=== PATIENT | female | born 1975 | race Caucasian/White ===

== ENCOUNTER 2024-08-13 15:12 | Observation (INO) | payer BC, SELFPAY ==
[2024-08-13] VITALS (10 sets, daily range): BP systolic 125–162; BP diastolic 66–101; BMI 39.4
--- NOTE | 2024-08-13 09:55 | ED.GENMED ---
History of Present Illness
General
Chief Complaint: Numbness
Source: patient
Exam Limitations: none
Time Seen by Provider: 08/13/24 09:28
Nursing documentation reviewed up to this point in time: agreed with
History of Present Illness
History of Present Illness:
49-year-old female presents emergency room complaining of numbness in her left face and arm. She denies any chest pain.
Past History
Past History
ED Past Medical History: Asthma and Other (Diverticulitis)
ED Past Surgical History: Appendectomy
Social History
Tobacco: Former smoker (Former cigarette smoker, quit 20 years ago)
Alcohol: None
Drug: Former user (Previous marijuana use)
Review of Systems
Review of Systems
Allergies reviewed?: Yes
All Other Systems: Not applicable
Constitutional: Reports no symptoms
EENT: Reports no symptoms
Respiratory: Reports no symptoms
Cardiac: Reports no symptoms
ABD/GI: Reports no symptoms
: Reports no symptoms
Musculoskeletal: Reports no symptoms
Skin: Reports no symptoms
Neurological: Reports numbness
Endocrine: Reports no symptoms
Hematologic/Lymphatic: Reports no symptoms
Psychiatric: Reports no symptoms
Phy Exam
Physical Exam
Physical Exam:
Physical Exam
General: no apparent distress, not acutely ill
Neck: supple. no meningeal signs. normal posterior pharynx
Heart: s1/s2 regular rate and rhythm, no murmur. equal radial
pulses.
HEENT: Pupils equal round reactive to light, EOMI
Lungs: no acute respiratory distress. clear bilaterally
Abdomen: normal bowel sounds. not tender. no CVAT
Neuro: alert and oriented. no focal neurological deficits cranial nerves II through XII intact
Skin: no rash
Psychiatric: well kept. interactive and cooperative
Extremities: no edema. no calf tenderness. negative homans. good distal pulses
NIH Stroke Score
Level of Consciousness: 0 - Alert
LOC questions: 0-Answers both correctly
LOC Commands: 0-Performs both correctly
Best Gaze: 0-Normal
Visual Sweeney: 0=Normal, no visual loss
Facial palsy: 0=Normal, symmetrical
Motor - Right Arm: 0=No drift 10 seconds
Motor - Left Arm: 0=No drift 10 seconds
Motor - Right Le-No drift 5 seconds
Motor - Left Le-No drift 5 seconds
Limb Ataxia: 0-Absent
Sensation: 0-Normal
Best Language: 0-No aphasia
Dysarthria: 0-Normal
Extinction and Inattention: 0-No abnormality
Total Score:: 0
Alteplase Contraindication
Reasons for NON-Treatment with Thrombolytics: Rapid improvement
[place] Coma Scale
Eye Opening: Spontaneous
Verbal Response: Oriented
Motor Response: Obeys Commands
GCS Total Score: 15
Course
Orders/Labs/Results
Orders:
Orders
08/13/24 09:50
Cardiac Monitoring- Treatment ONCE
IV Insert/Care/Rem.- Treatment PRN
Pulse Ox/cont/shift [RESP] Stat
Quantity: 1
08/13/24 09:53
Electrocardiogram (*1) Stat
Reason for Study: Other
Other Reason for Exam: neuro symptoms
EKG- Treatment ONCE
08/13/24 09:56
CT Head & Neck Angio W/wo IV Urgent
Comment:
Reason For Exam: left facial numbness,left arm numbness
08/13/24 10:24
Complete Blood Count/With Diff Urgent
Comprehensive Metabolic Panel Urgent
PTT Urgent
Prothrombin Time Urgent
Troponin I Urgent
08/13/24 14:45
Admit/Transfer Patient As Directed
Co-Sign Provider:
Level of Care: Observation services
Assign to:: Telemetry
Physician / Group: Nnamdi Arriaga
Diagnosis: TIA
Reason for Telemetry: CVA/TIA
Date to Stop Telemetry: 08/16/24
Time to Stop Telemetry: 11:00
08/13/24 14:46
PRN Pain Medication Management As Directed
May give lesser potent ordered pain med per pt: Yes
preference::
Protocol:: Medication orders for pain may be administered in a
manner that supports deferring to patient preference
when the pt is:
- Requesting an ordered lesser potent pain medication.
Least to most potent pain medications are defined
as: acetaminophen < NSAID < tramadol < opioids
(morphine, oxycodone, hydromorphone).
- Requesting a lesser dose of the same medication IF
ORDERED.
- Requesting a less intrusive route of administration
if both routes are prescribed by the provider (PO <
IV).
08/13/24 14:48
Code Status As Directed
Resuscitation Status: Do not resuscitate
Reached after discussion with pt or family/Healthcare POA: Yes
Decision communicated with: patient, friend present
08/13/24 14:49
DNR Bracelet Application ONCE
08/13/24 14:56
Add On- LAB Routine
Comments:: Please add to today's labs or draw as routine
Tests Added?: TSH reflex, Ferritin, Folate, Vit. B12, ESR, lipid proflie
08/13/24 15:00
Aspirin Low Dose EC [Aspir Low (Enteric Coated)] 81 mg PO DAILY
Clopidogrel Bisulfate [Plavix] 75 mg PO DAILY
08/16/24 11:00
DC Protocol for Telemetry ONCE
Abnormal Lab Results
08/13/24
10:24
WBC 11.4 H 10^3/uL
(4.8-10.8)
MCHC 32.6 L g/dL
(33.0-37.0)
MPV 10.7 H fL
(7.4-10.4)
Abs Immat Gran (auto) 0.1 H 10^3/uL
(0-0.05)
Absolute Neuts (auto) 8.7 H 10^3/uL
(1.4-6.5)
Neutrophils % 76.6 H %
(42.2-75.2)
Lymphocytes % 16.7 L %
(20.5-51.1)
Sodium 134 L mmol/L
(135-145)
Glucose 412 H mg/dl
(70-99)
Alkaline Phosphatase 153 H U/L
(38-126)
08/13/24 10:24
08/13/24 10:24
Vital Signs
Initial and Last Documented VS:
Initial Vital Signs
BP
148/97
08/13/24 09:34
Last Documented Vital Signs
Temp Pulse Resp BP Pulse Ox
98.3 F 93 17 131/91 94
08/13/24 09:35 08/13/24 13:45 08/13/24 13:30 08/13/24 13:00 08/13/24 14:00
MDM/Problems Addressed
Differential Diagnosis Includes:
TIA, CVA
MDM/Problems Addressed:
49-year-old female with left-sided numbness, possibly due to TIA versus CVA. Symptoms resolved. Patient had recurrence of symptoms with resolution in ED. Admit for further workup.
*Radiology
Radiology exam reviewed: radiology read reviewed (CT head no acute findings)
*Pulse Oximetry
Patient hypoxic: no
*EKG
Interpreted by ED Provider?: Yes
EKG Intrepretation Date: 08/13/24
EKG Intrepretation Time: 11:19
Interpretation: normal
Comparison EKG: no comparison EKG present
Heart Rate: 80
Rate: normal
Rhythm: sinus
[place]: normal axis
Interval: normal interval
QRS Pattern: normal QRS
Ischemia: no ischemia
*Coring Machine Operator Interpretation
Rate: normal
Interpretation: normal
Heart Rate: 78
Rhythm: sinus
*Critical Care Note
Total Time (30-74mins, 75-104mins- exclusive of procedures): Not Applicable
Patient Management
Social determinants of health affecting care: Living situation
Discussion with other providers: Hospitalist and Frontend Engineer
Escalation/DeEscalation of care consider admission/obs:
admit indicated
ED Attending Note
-
Portions of this chart may have been created with voice recognition software.� Occasional wrong word or��sound alike� substitutions may have occurred due to the inherent limitations of voice recognition software.
Discharge Plan
Departure
Patient Disposition: Admit
Date of Disposition: 08/13/24
Time of Disposition: 13:24
Admit to: Telemetry
Presentation/result/management discussed w/ accepting MD/DO: Hospitalist
Patient with high blood pressure during this ER visit?: Yes
Condition: Good
Discharge Problem:
Transient ischemic attack (TIA), Acute hyperglycemia
Interventions
Interventions:
*Risk Screen - Suicide Last Done: 08/13/24 09:29
*General Assessment Last Done: 08/13/24 09:29
*Neglect/Abuse Screening Last Done: 08/13/24 09:29
ED- Fall Risk Assessment Last Done: 08/13/24 09:29
*ED COVID-19 Vaccine History Last Done: 08/13/24 09:29
ED- Neurological Assessment Last Done: 08/13/24 09:29
[2024-08-13 10:36] LABS: % Basophils 0.6 % (0-2); % Immature Granulocytes 0.4 % (0-0.5); % Lymphocytes 16.7 % (20.5-51.1); % Monocytes 4.7 % (1.7-9.3); % Neutrophils 76.6 % (42.2-75.2); Absolute Basophils 0.1 10^3/uL (0-0.2); Absolute Eosinophils 0.1 10^3/uL (0-0.7); Absolute Immature Granulocytes 0.1 10^3/uL (0-0.05); Absolute Lymphocytes 1.9 10^3/uL (1.2-3.4); Absolute Monocytes 0.5 10^3/uL (0.1-0.6); Absolute Neutrophils 8.7 10^3/uL (1.4-6.5); Hemoglobin 13.7 g/dL (12.0-16.0); Mean Corp Hgb Conc. 32.6 g/dL (33.0-37.0); Mean Corpuscular Hgb 28.5 pg (27.0-31.0); Mean Corpuscular Volume 87.3 fL (81.0-99.0); Mean Platelet Volume 10.7 fL (7.4-10.4); Nucleated Red Blood Cells % 0 %; Platelet Count 295 10^3/uL (130-400); Red Blood Cell Count 4.81 10^6/uL (4.20-5.40); White Blood Cell Count 11.4 10^3/uL (4.8-10.8)
[2024-08-13 10:52] LABS: ALT (SGPT) 21 U/L (0-35); AST (SGOT) 17 U/L (14-36); Alkaline Phosphatase 153 U/L (38-126); Blood Urea Nitrogen 14 mg/dl (7-17); Calcium 9.2 mg/dl (8.4-10.2); Carbon Dioxide 28 mmol/L (22-30); Chloride 98 mmol/L (98-107); Estimated Creatinine Clearance > 125 ml/min; Glucose 412 mg/dl (70-99); Potassium 4.9 mmol/L (3.5-5.1); Sodium 134 mmol/L (135-145); Total Bilirubin 0.5 mg/dl (0.2-1.3); Total Protein 6.4 g/dl (6.3-8.2); eGFR > 60.00
[2024-08-13 10:54] LABS: INR 0.92; PT 12.8 Sec (11.4-14.6)
[2024-08-13 10:55] LABS: APTT 26.8 Sec (23.4-35.0)
[2024-08-13 11:03] LABS: Troponin I < 0.012 ng/ml
--- NOTE | 2024-08-13 14:12 | HPS.HSE ---
Family Physician
-
Family Physician: Varsha Rodriguez
Chief Complaint
-
numbness
History of Present Illness
Patient is a 49-year-old female with past medical history significant for hypertension, hyperlipidemia, type 2 diabetes, neuropathy, asthma and GERD who presented to [facility] ED for evaluation of numbness to left face and arm that resolved
spontaneously in less than 7 minutes. Patient states she had a second episode of numbness to left face and left arm after arrival in ED that also spontaneously subsided in a few minutes. Patient denies any fever, chills, chest pain, cough,
constipation, diarrhea or urinary symptoms.
Medical History
Past Medical History
Past Medical History: Reports Other
Additional Past Medical History:
hypertension
hyperlipidemia
type 2 diabetes
neuropathy
asthma
GERD
Hx uterine cancer
Past Surgical History: Reports Other
Additional Past Surgical History:
appendectomy
knee arthroscopy/ACL repair
hysterectomy (2007)
Social History
Tobacco: Former Smoker (quit 2012)
Alcohol: None
Drug: Marijuana (was smoking a few times a week, reports has not smoked since March)
Personal: Single
Living: With Family
Employment: Not Employed
Family History
Family History: Not pertinent
Allergies / Home Medications
Allergies reflects when Allergies were last updated in [facility].
Home Medications with original date entered in [facility]
Allergy/Medication List:
Allergies
Allergy/AdvReac Type Severity Reaction Status Date / Time
No Known Allergies Allergy Unverified 09/11/23 14:41
Home Medications
amlodipine 10 mg tablet (Norvasc) 10 mg PO HS Blood Pressure 09/11/23
fluticasone 250 mcg-salmeterol 50 mcg/dose blistr powdr for inhalation (Advair Diskus) 1 inh inhalation R BID Lung/Breathing Issues 09/11/23
insulin glargine 100 unit/mL subcutaneous solution (Lantus U-100 Insulin) 25 unit SC HS Diabetes 09/11/23
pregabalin 100 mg capsule (Lyrica) 100 mg PO BID Pain 09/11/23
albuterol sulfate 90 mcg/actuation aerosol inhaler 2 puff inhalation R Q6HPRN PRN sob 08/13/24
atorvastatin 40 mg tablet 40 mg PO HS High Cholesterol 08/13/24
ibuprofen 800 mg tablet 800 mg PO HSPRN PRN mild pain 08/13/24
omeprazole 40 mg capsule,delayed release 40 mg PO HS Gastrointestinal Issue 08/13/24
Review of Systems
-
History Source: Patient
Constitutional: Reports No Symptoms
EENT: Reports No Symptoms
Respiratory: Reports No Symptoms
Cardiac: Reports No Symptoms
Abdomen/GI: Reports No Symptoms
: Reports No Symptoms
Musculoskeletal: Reports No Symptoms
Skin: Reports No Symptoms
Neurological: Reports Numbness (left face and left arm x2 episodes resolving spontaneously in less than 5-7 minutes)
Endocrine: Reports No Symptoms
Hematologic/Lymphatic: Reports No Symptoms
Psych: Reports No Symptoms
Physical Exam
Vital Signs
Vital Signs
Temp Pulse Resp BP Pulse Ox
98.3 F 93 17 131/91 94
08/13/24 09:35 08/13/24 13:45 08/13/24 13:30 08/13/24 13:00 08/13/24 14:00
Physical Exam
General: Well Developed, Well Nourished, No Apparent Distress, Comfortable and Conversant
HEENT: NormoCephalic, Moist mucous membranes and Atraumatic
Respiratory: Clear and Non Labored Respirations; No Wheezes, Rales, Rhonchi or Crackles
Cardiac: S1/S2 and Regular Rhythm; No Murmur, Rub or Gallop
Breast: Deferred by me
GI: Soft, Non Tender, Non Distended and Normal Bowel Sounds; No Organomegaly
Rectal: Deferred by Provider
Genito-urinary: Deferred by me
Musculoskeletal: No Clubbing, No Cyanosis and No Edema
Skin: Warm and IV/Catheter Site; No Rash
Neuro: Awake, Alert, AO x 3, No Motor Deficits, Nonfocal/grossly intact, Cranial Nerves Intact and No Sensory Deficits; No Slurred Speech, Facial Droop or Tremors
Hematologic/Lymphatic: No Lymphadenopathy
Psych: Calm and Intact Judgment/Insight
Laboratory Results
-
08/13/24 10:24
08/13/24 10:24
Laboratory Results
PT 12.8 Sec (11.4-14.6) 08/13/24 10:24
INR 0.92 08/13/24 10:24
APTT 26.8 Sec (23.4-35.0) 08/13/24 10:24
Total Bilirubin 0.5 mg/dl (0.2-1.3) 08/13/24 10:24
AST 17 U/L (14-36) 08/13/24 10:24
ALT 21 U/L (0-35) 08/13/24 10:24
Alkaline Phosphatase 153 U/L (38-126) H 08/13/24 10:24
Troponin I < 0.012 ng/ml 08/13/24 10:24
Data Reviewed
-
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 The study is otherwise normal)
Medical Tests (Nuc Med, Echo, EKG etc): Report Reviewed by me (EKG: NORMAL SINUS RHYTHM LOW VOLTAGE QRS ACROSS PRECORDIAL LEADS CANNOT RULE OUT ANTERIOR INFARCT , AGE UNDETERMINED ABNORMAL ECG NO PREVIOUS ECGS AVAILABLE)
Lab Data: Labs Reviewed by me (WBC 11.4, Glucose 412)
Impression/Plan
-
IMPRESSION/PLAN:
#TIA
pt c/o left side numbness to face and arm and resolved within 5-7 minutes
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
The study is otherwise normal
- Admit to telemetry
- Consult Neurology
- start aspirin and Plavix
- MRI
#hypertension
stable
- continue amlodipine
#hyperlipidemia
- continue atorvastatin
- check lipid panel
#type 2 diabetes
- continue insulin glargine
- AccuChecks AC & HS
- SSI
#Neuropathy
- continue pregabalin
#Asthma
- continue albuterol and Advair
#GERD
- continue omeprazole
Code Status: Full Code
DVT Prophylaxis: Lovenox Sq
[2024-08-13] MEDS: ASPIR LOW (ENTERIC COATED) 81 MG PO (15:21)
[2024-08-13] MEDS: PLAVIX 75 MG PO (15:21)
--- NOTE | 2024-08-13 15:37 | W.PN.UPDATE ---
Update Note
Progress Note Update
This note serves as an addendum to the H&P by internal audit senior manager GREG Naila Wells
HPI
49F HX HTN, HLD, T2DM, Neuropathy , Asthma and GERD seen at ER>
- For evaluation of abrupt onseet of numbness to left face and arm that resolved spontaneously in less than 7 minutes.
- Second episode of numbness to left face and left arm after arrival in ED then spontaneously subsided few minutes.
ROS:
Denies any fever, chills, chest pain, cough, constipation, diarrhea or urinary symptoms.
PHX:
hypertension
hyperlipidemia
type 2 diabetes
neuropathy
asthma
GERD
Hx uterine cancer
Past Surgical History: Reports Other
Additional Past Surgical History:
appendectomy
knee arthroscopy/ACL repair
hysterectomy (2007)
Vital Signs
Temp Pulse Resp BP Pulse Ox
98.3 F 93 17 131/91 94
08/13/24 09:35 08/13/24 13:45 08/13/24 13:30 08/13/24 13:00 08/13/24 14:00
PE
General: No Apparent Distress, Comfortable and Conversant
HEENT: Moist OM
Respiratory: Clear and Non Labored Respirations; No Wheezes, Rales, Rhonchi or Crackles
Cardiac: S1/S2 and Regular Rhythm; No Murmur, Rub or Gallop
Breast: Deferred by me
GI: Soft, Non Tender, Non Distended and Normal Bowel Sounds; No Organomegaly
Rectal: Deferred by Provider
Genito-urinary: Deferred by me
Musculoskeletal: No Edema
Skin: Warm and IV/Catheter Site; No Rash
Neuro: Awake, Alert, AO x 3, No Motor Deficits, Nonfocal/grossly intact, Cranial Nerves Intact and No Sensory Deficits; No Slurred Speech, Facial Droop or Tremors
Hematologic/Lymphatic: No Lymphadenopathy
Psych: Calm and Intact Judgment/Insight
Abnormal Lab Results
08/13/24
10:24
WBC 11.4 H
MCHC 32.6 L
MPV 10.7 H
Abs Immat Gran (auto) 0.1 H
Absolute Neuts (auto) 8.7 H
Neutrophils % 76.6 H
Lymphocytes % 16.7 L
Sodium 134 L
Glucose 412 H
Alkaline Phosphatase [address] Head & Neck Angio W/wo IV
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
The study is otherwise normal
ASSESSMENT & PLAN
Pending Rx reconciliation
Presumed TIA to evaluate for 2 transient episode of acute left side numbness to face and arm
Head/Neck CTA: as above: The study is otherwise normal
- start aspirin and Plavix
- MRI of Brain
- Neuro consulted
Benign hypertension
- stable
- cont amlodipine
Hyperlipidemia
- continue atorvastatin
- check lipid panel
T2DM
- continue insulin glargine
- Accu Checks AC & HS
- SSI low
DVT Px: LMWH
Full code
Obs TLM
--- NOTE | 2024-08-13 15:56 | CON.NEURO4 ---
Addendum entered and electronically signed by Moncho Ruiz MD 08/13/24 16:28:
Studies reviewed.
I have personally examined the patient. I reviewed and agree with the CLINICAL DOCUMENTATION CLERK's Note.
My addenda:
Awake, alert, interactive. No acute distress.
Speech intact.
Follows 2-step requests w/o difficulty. No tremor.
Extra-ocular movements grossly intact.
Facial movements full and symmetric. Hearing intact to normal conversational volume.
Normal UE movements bilaterally.
Neck: full ROM.
Chest: no dyspnea
Heart: no JVD
Ext: (-) Clubbing, (-) Cyanosis, (-) Edema
IMPRESSIONS/RECOMMENDATIONS:
Abrupt onset of facial sensation and left arm sensation change in a patient with poorly controlled type 2 diabetes
Differential diagnosis includes TIA or toxic metabolic etiology in a patient with known diabetic neuropathy
Goal of normoglycemia
Check MRI of brain for completeness
Initiate combination of aspirin and clopidogrel with discontinuance of clopidogrel if patient has no evidence of prior ischemic injury
Medical educational materials to be provided
Continue current pregabalin for neuropathic pain
Continue atorvastatin 40 mg daily dependent on LDL findings
Check blood work for additional metabolic abnormalities
No clear indication patient would benefit from rehabilitation evaluations at this time
Consideration for use of prochlorperazine for headache rescue if the patient redevelops visual change described previously
D/W patient
Will continue to follow pending results.
Original Note:
Documented by User: YAZAN De Los Santos 08/13/24 16:23
Consultation - Neurology 4
-
CONSULTING PHYSICIAN: Dr. Moncho Ruiz
REFERRING PHYSICIAN: Dr. Miko Sr
DICTATED BY: Melissa HAND
DATE/TIME OF REQUEST: 08/13/2024
DATE/TIME OF CONSULTATION: 08/13/2024
Reason for Consultation: stroke symptoms
History of Present Illness:
This is a Right handed 49-year-old female patient with past medical history of hypertension, hyperlipidemia, type 2 diabetes, neuropathy, asthma, GERD and uterine cancer who presented to the hospital today after a transient episode of altered
vision and left facial as well as arm numbness. She reports she was working sitting at hers desk at 0900 when she had sudden onset of wavy vision in both eyes when looking forward followed by left facial and lip numbness and left arm numbness.
She reported that this episode lasted about 7 minutes. She felt she needed evaluation and presented to the ER. While she was in the ER about 2 pm she had second episode starting with vision changes, then left facial and arm numbness. During the
second episode she also noted numbness of her tongue. Staff noted left facial weakness and she felt her speech was not quite normal. This again lasted about 7 minutes. She denies any headache. She denies dizziness. Denies any weakness or
numbness of right side. She denies any trouble with swallowing. She denied any episodes similar to this in the past. She has no history of migraines. She had a CT of the head that was unremarkable. She does not take any antiplatelet. She does
admit that she has a history of neuropathy. This is due to her back. She has had EMG in the past. She does follow-up with Ortho. They had offered her some narcotic pain medication for the discomfort in her feet but she has decided against taking
narcotics. She does take Lyrica.
Past Medical History
Past Medical History: Reports Other
Additional Past Medical History:
hypertension
hyperlipidemia
type 2 diabetes
neuropathy
asthma
GERD
Hx uterine cancer
Past Surgical History: Reports Other
Additional Past Surgical History:
appendectomy
knee arthroscopy/ACL repair
hysterectomy (2007)
Social History
Tobacco: Former Smoker (quit 2012)
Alcohol: None
Drug: Marijuana (was smoking a few times a week, reports has not smoked since March)
Personal: Single
Living: With Family
Employment: Not Employed
Family History
mother Asthma, father mental health disease
Allergies: seeb elow
Home Medications: see below
Review of Symptoms:
Patient denies any fever, headache, chest pain, shortness of breath, GI or symptoms.
Vital Signs: see below
Physical Exam:
The patient is afebrile, heart sounds S1 and S2 are regular no dyspnea or SOB.
NIH Stroke Scale-see below
Neurologic Examination:
The patient is awake, alert and oriented x 3. (He/She) is able to follow commands and answer questions appropriately. There is no aphasia or dysarthria. On cranial nerve assessment, pupils are 3 mm bilateral, round and reactive to light and
accommodation. Visual sweeney are full. Extraocular movements are intact. Facial sensations are intact and bilaterally symmetrical, there is no facial asymmetry. Hearing is intact bilaterally to normal conversation volume. Tongue palate and uvula
are midline. Sternocleidomastoid strengths are full bilaterally. Motor strengths are 5/5 bilateral upper and lower extremities on medical research [place] [employer] [place] scale. There is no drift or involuntary movement noted. Deep tendon reflexes are 2+ bilateral
upper and lower extremities and Babinski is absent bilaterally. Sensations of light touch and temperature reduced bilateral lower extremities distally. There was no extinction noted on double simultaneous stimulation. Coordination is intact by
finger to nose bilaterally.
Lab Results: see below
Neuro Imaging:
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 Study is otherwise normal
Impression:
KRISTA MUNOZ is a 49 year old F who has presented to the hospital with Vision changes, left facial and left upper extremity numbness. Has chronic lower extremity neuropathy.
Differentials for the patient's presentation include TIA vs acute stroke vs acephalgic complicated migraine
Patient has the following risk factors for their symptoms: DM,HTN, HLD
IV Tenecteplase/IAT candidacy-Low NIH
Recommendations:
-Check MRI brain, no need for additional imaging as CTA head/neck completed
-Start ASA 81 mg and Plavix 75 mg daily x 21 days
-Check echo
-lipids pending, continue Atorvastatin 40 mg goal LDL less than 70
-allow permissive HTN for 24 hours then goal normotension
-goal normoglycemia, HgbA1c 09/2023 11.6, will order new HgbA1c
-labs for additional metabolic causes pending
-rehab evaluations
-continue Lyrica
-DVT prophylaxis
-rest of medical management per primary care team
Discussed patient care with patient and neurologist Dr. Ruiz.
Medication and Allergies
Home Medications
Home Medications
�Medication �Instructions �Recorded
amlodipine 10 mg tablet (Norvasc) 10 mg PO HS Blood Pressure 09/11/23
fluticasone 250 mcg-salmeterol 50 1 inh inhalation R BID 09/11/23
mcg/dose blistr powdr for Lung/Breathing Issues
inhalation (Advair Diskus)
insulin glargine 100 unit/mL 25 unit SC HS Diabetes 09/11/23
subcutaneous solution (Lantus
U-100 Insulin)
pregabalin 100 mg capsule (Lyrica) 100 mg PO BID Pain 09/11/23
albuterol sulfate 90 mcg/actuation 2 puff inhalation R Q6HPRN PRN sob 08/13/24
aerosol inhaler
atorvastatin 40 mg tablet 40 mg PO HS High Cholesterol 08/13/24
ibuprofen 800 mg tablet 800 mg PO HSPRN PRN mild pain 08/13/24
omeprazole 40 mg capsule,delayed 40 mg PO HS Gastrointestinal Issue 08/13/24
release
Allergies
Allergies
Allergy/AdvReac Type Severity Reaction Status Date / Time
No Known Allergies Allergy Unverified 09/11/23 14:41
Vital Signs / Labs
-
Vital Signs and Labs:
Temp Pulse Resp BP Pulse Ox
98.3 F 90 13 131/91 93
08/13/24 09:35 08/13/24 15:30 08/13/24 15:30 08/13/24 13:00 08/13/24 15:30
08/13/24 10:24
08/13/24 10:24
08/13/24
10:24
WBC 11.4 H
MCHC 32.6 L
MPV 10.7 H
Abs Immat Gran (auto) 0.1 H
Absolute Neuts (auto) 8.7 H
Neutrophils % 76.6 H
Lymphocytes % 16.7 L
Sodium 134 L
Glucose 412 H
Alkaline Phosphatase 153 H
NIH Stroke Score
NIH Stroke Score
Level of Consciousness: 0 - Alert
LOC Questions: 0-Answers both correctly
LOC Commands: 0-Performs both correctly
Best Horizontal Gaze: 0-Normal
Visual Sweeney: 0=Normal, no visual loss
Facial Palsy: 0=Normal, symmetrical
Motor - Right Arm: 0=No drift 10 seconds
Motor - Left Arm: 0=No drift 10 seconds
Motor - Right Le-No drift 5 seconds
Motor - Left Le-No drift 5 seconds
Limb Ataxia: 0-Absent
Sensation: 0-Normal
Best Language: 0-No aphasia
Dysarthria: 0-Normal
Extinction and Inattention: 0-No abnormality
Total Score:: 0
Modified [place] (mRS) Score
Modified Jack Scale (mRS): No symptoms
Score: 0

Documented by User: Moncho Ruiz MD 08/13/24 16:24
NIH Stroke Score
NIH Stroke Score
Total Score:: 0
Modified [place] (mRS) Score
Score: 0
[2024-08-13 16:08] LABS: Erythrocyte Sed Rate 24 mm/hour (0-20)
[2024-08-13 16:16] LABS: HDL Cholesterol 36 mg/dl; LDL Cholesterol, Calculated 72 mg/dl; Total Cholesterol 159 mg/dl (50-199); Triglyceride 257 mg/dl (10-149); Very Low Density Lipoprotein 51 mg/dl (0-30)
[2024-08-13 16:54] LABS: TSH Reflex To Free T4 0.72 uIU/ml (0.47-4.68)
[2024-08-13 17:29] LABS: Folate 10.2 ng/ml (2.76-20); Vitamin B12 510 pg/ml (239-931)
[2024-08-13] MEDS: ASPIRIN 325 MG PO (18:29)
[2024-08-13 18:34] LABS: Glucose - Point of Care 266 mg/dl (70-99)
[2024-08-13] MEDS: NOVOLOG FLEXPEN-LOW RESISTANCE 3 UNITS SC (18:51)
[2024-08-13] MEDS: ADVAIR HFA 115/21 MCG INHALER 2 PUFF INH (19:59)
[2024-08-13] MEDS: LYRICA 100 MG PO (20:13)
[2024-08-13] MEDS: NORVASC 10 MG PO (21:40)
[2024-08-13] MEDS: LIPITOR 40 MG PO (21:40)
[2024-08-13] MEDS: PROTONIX 40 MG PO (21:43)
[2024-08-13 22:17] LABS: Glucose - Point of Care 346 mg/dl (70-99)
[2024-08-13] MEDS: LANTUS 0.25 UNITS SC (22:26)
[2024-08-14 03:30] VITALS: BP 155/97
[2024-08-14 07:30] VITALS: BP 143/86
[2024-08-14] MEDS: ADVAIR HFA 115/21 MCG INHALER 2 PUFF INH (07:37)
[2024-08-14 07:44] LABS: Glucose - Point of Care 290 mg/dl (70-99)
[2024-08-14 08:58] LABS: Hematocrit 41.2 % (37.0-47.0); Hemoglobin 13.4 g/dL (12.0-16.0); Mean Corp Hgb Conc. 32.5 g/dL (33.0-37.0); Mean Corpuscular Hgb 28.3 pg (27.0-31.0); Mean Corpuscular Volume 86.9 fL (81.0-99.0); Mean Platelet Volume 10.9 fL (7.4-10.4); Platelet Count 321 10^3/uL (130-400); Red Blood Cell Count 4.74 10^6/uL (4.20-5.40); Red Cell Dist. Width 12.2 % (11.5-14.5); White Blood Cell Count 10.5 10^3/uL (4.8-10.8)
[2024-08-14 09:33] LABS: ALT (SGPT) 20 U/L (0-35); AST (SGOT) 19 U/L (14-36); Albumin 4.1 g/dl (3.5-5.0); Alkaline Phosphatase 115 U/L (38-126); Blood Urea Nitrogen 12 mg/dl (7-17); Calcium 9.2 mg/dl (8.4-10.2); Carbon Dioxide 24 mmol/L (22-30); Chloride 100 mmol/L (98-107); Estimated Creatinine Clearance > 125 ml/min; Glucose 296 mg/dl (70-99); HDL Cholesterol 34 mg/dl; LDL Cholesterol, Calculated 71 mg/dl; Potassium 4.5 mmol/L (3.5-5.1); Sodium 135 mmol/L (135-145); Total Bilirubin 0.7 mg/dl (0.2-1.3); Total Cholesterol 171 mg/dl (50-199); Total Protein 6.5 g/dl (6.3-8.2); Triglyceride 332 mg/dl (10-149); Very Low Density Lipoprotein 66 mg/dl (0-30); eGFR > 60.00
--- NOTE | 2024-08-14 09:34 | W.PN.NEURO.1 ---
Addendum entered and electronically signed by Moncho Ruiz MD 08/14/24 10:50:
Studies reviewed.
I have personally examined the patient. I reviewed and agree with the [employer] OPERATOR's Note.
My addenda:
Awake, alert, interactive. No acute distress.
Speech intact.
No tremor.
Extra-ocular movements grossly intact.
Facial movements full and symmetric. Hearing intact to normal conversational volume.
Normal UE movements bilaterally.
Neck: full ROM.
Chest: no dyspnea
Heart: no JVD
Ext: (-) Clubbing, (-) Cyanosis, (-) Edema
IMPRESSIONS/RECOMMENDATIONS:
Abrupt onset of left facial sensation change with left arm sensation change in a patient with poorly controlled diabetes
Probably metabolic in etiology. Cannot eliminate possibility of TIA or acephalgic migraine
Provide Rizatriptan for the patient's perpetual headache
Continue pregabalin for discomfort
Continue combination of aspirin and clopidogrel for total 21 days, then aspirin alone
Continue usual atorvastatin dosing
Goal of normoglycemia
Goal of normotension
D/W patient
All questions answered.
Will continue to follow patient.
Original Note:
Today's Communication / Plan
-
-continue ASA, Plavix and atorvastatin
-Tylenol for headache
Neuro Assessment/Plan
Assessment
This is a 50 year old female patient who presented with intermittent episodes of vision changes as well as left sided facial and left arm sensation changes. She reports posterior and left sided headache today which began in the middle of the night.
MRI brain reviewed and negative for acute stoke.
Differential diagnosis includes TIA vs acephalgic migraine vs metabolic disturbance.
Pt also has chronic neuropathy.
Plan
-reviewed neurologic imaging
--CTA head and neck
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
The study is otherwise normal
--MRI brain
No acute intracranial abnormality noted.
-will treat as possible TIA-ASA and Plavix x21 days then continue ASA 81 mg daily indefinitely
--Echo
No CSE/PFO
-LDL 71 continue Atorvastatin 40 mg, goal less than 70
-goal normotension
-goal normoglycemia-HgbA1c pending
-No clear need for continued PT/OT or speech evaluations
-DVT prophylaxis
-Tylenol 650 mg q4h prn headache
-continue Lyrica
-DVT prophylaxis
-rest of medical management per primary care team
Subjective/Objective
Subjective Data
Date of Service: August 14, 2024
Pt seen at bedside today. She reports that she had another episode of left facial and arm numbness that lasted about 5 minutes about 5 pm last night while she was having her Echo completed. She also started with a headache 4/10 in intensity left
ye/nose and posterior head in the middle of the night and has continued this morning. She denies any additional weakness. No trouble with speaking or swallowing.
Objective Data
Vital Signs
Temp Pulse Resp BP Pulse Ox
97.8 F 78 16 143/86 95
08/14/24 07:30 08/14/24 07:41 08/14/24 07:41 08/14/24 07:30 08/14/24 07:41
Lab Results
08/14/24 07:55
08/14/24 07:55
PT 12.8 Sec (11.4-14.6) 08/13/24 10:24
INR 0.92 08/13/24 10:24
APTT 26.8 Sec (23.4-35.0) 08/13/24 10:24
Sodium 135 mmol/L (135-145) 08/14/24 07:55
Potassium 4.5 mmol/L (3.5-5.1) 08/14/24 07:55
BUN 12 mg/dl (7-17) 08/14/24 07:55
Glucose 296 mg/dl (70-99) H 08/14/24 07:55
Calcium 9.2 mg/dl (8.4-10.2) 08/14/24 07:55
LDL Cholesterol, Calc 71 mg/dl 08/14/24 07:55
Vitamin B12 510 pg/ml (239-931) 08/13/24 10:24
Patient Allergies
No Known Allergies Allergy (Unverified 09/11/23 14:41)
LDL Level: >70, statin ordered
Review of Systems
-
History Source: Patient
Constitutional: No Symptoms
EENT: No Symptoms Reported
Respiratory: No Symptoms
Cardiac: No Symptoms
Abdomen/GI: No Symptoms
Genitourinary: No Symptoms
Musculoskeletal: No Symptoms
Skin: No Symptoms
Neuro: Headache, Numbness and See existing Neuro Note; Negative Dizzy, Weakness, Tremors or Speech Problem
Physical Exam
-
General: Well Developed, Well Nourished and No Apparent Distress
Eyes: Round OU
HEENT: Normocephalic
Neck: Full Range of Motion
Respiratory: No Dyspnea
Cardiac: Regular Rhythm
GI: Soft and Non-tender
Skin: Unremarkable
Extremities: No Clubbing
Psych: Unremarkable
Extended Neurological Exam
Mood & Affect: Mood Unremarkable and Affect Unremarkable
Attention Span & Concentration: Awake, Alert and No Difficulty with 2 Step Request
Memory: Unremarkable
Tremor: Hand Tremor Absent and Head Tremor Absent
Involuntary Movement: None
Speech: Quality Unremarkable, Quantity Unremarkable and Rate of Production Unremarkable
Cranial Nerve II: Left Eye: Pupillary Reactivity Unremarkable, Pupillary Size Unremarkable and Visual Sweeney Grossly Intact
Cranial Nerve II: Right Eye: Pupillary Reactivity Unremarkable, Pupillary Size Unremarkable and Visual Sweeney Grossly Intact
Cranial Nerves III, IV, : Extraocular Movement: Extraocular Movement Full in all Directions
Cranial Nerve VII: Facial Symmetry: Normal Facial Symmetry
Cranial Nerve VIII: Hearing: Unremarkable Hearing to Normal Conversational Volume
Cranial Nerves IX, X: Palate Movement: Palate Elevation Symmetric
Cranial Nerve XI: Shoulder Shrug: Unremarkable
Cranial Nerve XII: Tongue Protusion: Midline
Muscle Strength, Overall: Full Throughout
Coordination: Inuplo-dbqa-ccusgy Testing Unremarkable
Data Reviewed
-
MRI Head: Report Reviewed and Image Reviewed
Labs: Report Reviewed
Lipid Profile: Report Reviewed
HgbA1C: Pending
Reviewed with: Physician and Patient
[2024-08-14] MEDS: NOVOLOG FLEXPEN-LOW RESISTANCE SC (09:39)
[2024-08-14] MEDS: LYRICA 100 MG PO (09:39)
[2024-08-14] MEDS: PLAVIX 75 MG PO (09:39)
[2024-08-14] MEDS: ASPIR LOW (ENTERIC COATED) 81 MG PO (09:39)
[2024-08-14] MEDS: MAXALT MLT (ORALLY DISINTEGRATING) 10 MG PO (09:54)
[2024-08-14] MEDS: NOVOLOG FLEXPEN-LOW RESISTANCE 3 UNITS SC (09:54)
[2024-08-14 10:33] LABS: Glycohemoglobin (HgbA1c) 13.2 % (4.0-5.6)
--- NOTE | 2024-08-14 10:39 | PN.DE.MGMTRT ---
Insulin Management
- -
08/14/2024: Diabetes management Consult
49 year old female w/PMH: HTN, HLD, Neuropathy, Asthma, GERD Uterine cancer and T2DM, who presented to the hospital today after a transient episode of altered vision and left facial as well as left arm numbness. Was taking Lantus 25 units @ HS only
for diabetes mgt at home.
States she has a working glucose monitor but run out of test strips and lancets.
Last A1C was 11.6% on 09/12/2023, has worsened to 13.2%, Cr 0.6, eGFR >60
Diabetes regimen here includes Lantus 25 units @HS and low corrective with meals only
Noted for uncontrolled glucose since admission. Pre-dinner glucose was 266 and 346@ HS last night.
Pt received Lantus dose @ 2200, FBG was 296 (V) and 290 POC this AM and 360 pre-lunch
Will start AC NovoLog. Pt was ordered 8 units at breakfast, will increase AC dose to 12 units and increase Lantus to 30 units given A1C and high corrective insulin requirements.
Reviewed action of short and long acting insulin and instructed pt to contact PCP to adjust insulin dose if blood sugars remain >180 at all times.
Discussed lifestyle modification and offered flyer for OP DSME classes, pt states will call and register for education.
Pt states she has a OneTouch glucose monitor at home, will send scripts to pharmacy.
Updates given to pt's nurse and Hospitalist team.
Diabetes History
- -
Type of Diabetes: 2 requiring insulin
Pre-Admission Diabetes Regimen
08/13/24 08/14/24
10: 07:55
Creatinine 0.6 0.6
Insulin Pump Settings
IP Diabetes Regimen
08/13/24 08/13/24 08/13/24
10: 18:33 22:16
Glucose 412 H
POC Glucose 266 H 346 H
08/14/24 08/14/24
07:42 07:55
Glucose 296 H
POC Glucose 290 H
Patient Education
[2024-08-14] MEDS: NOVOLOG FLEXPEN 8 UNITS SC (10:48)
[2024-08-14 11:20] VITALS: BP 133/88; BP 163/94; PULSE 117; O2SAT 96
--- NOTE | 2024-08-14 11:34 | PTOTSP ---
Pt presents to OT with good UB AROM, strength and coordination. Vision, sensation and cognition grossly WNL. Currently at mod I/I level with basic ADLs, transfers and functional mobility without AD. No further skilled OT indicated at this time.
[2024-08-14 11:45] VITALS: BP 163/94; PULSE 117; O2SAT 96
--- NOTE | 2024-08-14 11:58 | W.PN.HOSP.TC ---
Addendum entered and electronically signed by Mayank Vizcaino MD 08/14/24 14:00:
left facial and ue numbness resolved.
mri brain without evidence of acute cva
likely TIAmvs hyperglycemia induced vs migrain
ldl 71-72.
neuro rec dapt [id number]
continue statin
uncontrolled hyperglycemia/dm
-a1c 13's
-dm management team consulted
-long and short acitng insulin
-dietary/exercision changes
severe obesity
-dietaty and lifestyle modificaiton
-discussed for 16mins
Original Note:
Today's Communication/Plan
-
Patient is stable for discharge today
Assessment / Plan
Assessment / Plan
Patient is a 49-year-old female who presented to ED with abrupt onset of left facial and left arm numbness lasting for 5-7 minutes. No other signs of stroke were present on admission. Initial labs in ED showed mild hyponatremia and mild
leukocytosis and elevated blood glucose at 412.
Chronic conditions prior to admission
Hyperlipidemia
Hypertension
Insulin-dependent diabetes mellitus type 2
GERD
Neuropathy
Asthma
Uterine cancer status post hysterectomy
# Transient left-sided facial and arm numbness
-Differential diagnoses include TIA vs diabetic neuropathy
-Head/neck CTA (08/13): A1 segment of RCA is aplastic and the remainder of the right anterior cerebral artery fills via patent anterior communicating artery.
-Brain MRI (08/13): No acute intracranial abnormality noted.
-Neuro consulted and following-started aspirin and Plavix-will need to continue combination therapy for at least 21 days and then switch to aspirin alone
# Hyperglycemia
- HgbA1c pending
- Patient mentions difficulties in access to DM medications
- Diabetic nurse practitioner consulted
- Case management consulted
- SSI plus Lantus 35 units
- Bedside glucose monitoring
- Maintain euglycemia with a goal of BG 140-180
# History of Hypertension
-Continue home amlodipine
# History of Hyperlipidemia
-Continue home atorvastatin
# History of GERD
-Protonix
# History of neuropathy
-Continue Lyrica
# History of asthma
-Continue home Advair and albuterol as needed
Full code
Anticipated Discharge: Today
Subjective/Interval History
-
Date of Service: August 14, 2024
Objective Data
-
Labs:
Laboratory Results
08/14/24
07:55
WBC 10.5
Hgb 13.4
Hct 41.2
Plt Count 321
Sodium 135
Potassium 4.5
Chloride 100
Carbon Dioxide 24
BUN 12
Creatinine 0.6
Glucose 296 H
Calcium 9.2
Total Bilirubin 0.7
AST 19
ALT 20
Alkaline Phosphatase 115
Vital Signs:
Vital Signs
Temp Pulse Resp BP Pulse Ox
97.8 F 78 16 143/86 94
08/14/24 07:30 08/14/24 07:41 08/14/24 07:41 08/14/24 07:30 08/14/24 08:00
Review of Systems
-
History Source: Patient
All other systems: Reviewed and negative
Neuro: Reports Headache and Numbness (not at the current time)
Physical Exam
-
General: Well Developed, No Apparent Distress and Morbidly Obese
HEENT: Normocephalic, Moist Mucous Membranes, Anicteric and PERRLA
Respiratory: Clear to Auscultation
Cardiac: Regular Rhythm and S1/S2
GI: Soft, Nontender, Nondistended and Normal Bowel Sounds
Genito-urinary: No Costovertebral Tender
Musculoskeletal: No Clubbing, No Cyanosis and No Edema
Skin: Warm and Dry
Neuro: Awake, Alert, Oriented, AO x 3, No Motor Deficits, No Sensory Deficits, Slurred Speech (negative) and Facial Droop (negative)
[2024-08-14 12:01] LABS: Glucose - Point of Care 360 mg/dl (70-99)
[2024-08-14] MEDS: NOVOLOG FLEXPEN-LOW RESISTANCE 5 UNITS SC (13:35)
--- NOTE | 2024-08-14 15:11 | CM ---
Pt seen bedside w/ significant other. Initial assessment completed.
Pt lives w/ significant other in an apartment [address] [facility]. Pt is independent, denies DME for ambulating or daily functioning.
Denies SNF/VN/PT hx
Address, point of contact and insurance verified
PCP: Dr. Varsha Rodriguez
Pharmacy: [facility]
Pt admitted in OBS status. OOBS form reviewed, pt given copy. Copy placed in chart
PT/OT evaluated, no skilled needs identified
Pt d/c today. Significant other to transport at d/c
No CM needs identified
Plan: Home; no needs
--- NOTE | 2024-08-14 17:55 | W.DCSUMMARY ---
Discharge Summary
Discharge Data
Date of Admission: 08/13/24
Date of Discharge: 08/14/24
-
Pending Results: No
Hospital Course
Impression-
49-year-old female with PMHx significant for IDDM 2, GERD, obesity, uterine cancer s/p hysterectomy presents to the hospital with sudden onset left-sided facial and arm weakness lasting for 5 to 7 minutes. Admitted for questionable TIA.
Hospital course-
Upon initial admission, she has mild hyponatremia, leukocytosis and her blood glucose is elevated at 412. She is diagnosed with acute hyperglycemia, an MRI was ordered which showed no evidence of any acute intracranial abnormality. Her head and
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 Which is a normal variant. HbA1c today showed 13.2, diabetes
nurse practitioner is consulted for diabetes management. Patient's insulin regimen was adjusted, patient was sent refills on her insulin and glucose monitor prescriptions, patient was also given rizatriptan, aspirin and clopidogrel. Her aspirin
and clopidogrel to be continued for 21 days and aspirin to be continued for thereafter, and her rizatriptan was given for 1 month. Neurology was involved with through her 1 day care and the hospital course as well.
Discharge Plan
-
Patient Disposition: Home (Routine Discharge)
Discharge Diagnosis/Procedures: TIA, Diabetes uncontrolled
Condition: Fair
Diet: Diabetic, Carb Controlled
Activity: No restrictions
Driving Restrictions: As prior to admission
Bathing Restrictions: None
Activity Restrictions/Additional Instructions:
They recommend 17gm carbohydrate restricted diabetic diet for optimal control of your diabetes management
Recommend high compliance with your insulin regimen.
We also recommend moderate intensity aerobic physical activity and 15 to 20 pound weight loss for optimal management of your diabetes.
Instructions: Type 2 diabetes, Lowering your risk of prediabetes and type 2 diabetes, The ABCs of diabetes
Referrals:
Varsha Rodriguez PA-C [Family Provider] -
Prescriptions:
New
(DME) OneTouch Verio test strips Strip
Qty: 150 0RF
Rx Instructions:
Pt testing blood sugars 4 times a day
(DME) lancets [OneTouch Delica Plus Lancet] 30 gauge Misc
Qty: 150 0RF
Rx Instructions:
Pt testing blood sugars 4 times a day
insulin aspart U-100 [Novolog FlexPen U-100 Insulin] 100 unit/mL (3 mL) Insulin Pen
12 unit SC AC Qty: 5 0RF
insulin glargine [Basaglar KwikPen U-100 Insulin] 100 unit/mL (3 mL) Insulin Pen
30 unit SC DAILY Qty: 5 0RF
Rx Instructions:
TAKE 30 UNITS DAILY AT BEDTIME
(DME) pen needle, diabetic [BD Ultra-Fine Jessenia Pen Needle] 32 gauge x 5/32' Needle
Qty: 200 0RF
Rx Instructions:
PATIENT TAKING INSULIN 4 TIMES A DAY
aspirin 81 mg Tablet,Delayed Release (Dr/Ec)
81 mg PO DAILY 30 Days Qty: 30 0RF
clopidogrel 75 mg Tablet
75 mg PO DAILY 21 Days Qty: 21 0RF
rizatriptan 10 mg tablet
10 mg PO ONCE 30 Days Qty: 30 0RF
Continued
fluticasone propion-salmeterol [Advair Diskus] 250-50 mcg/dose Blister With Device
1 inh INHALATION R BID
amlodipine [Norvasc] 10 mg Tablet
10 mg PO HS
pregabalin [Lyrica] 100 mg Capsule
100 mg PO BID
Patient Comments:
08/13/24: last filled 05/27/24, 60 tabs for 30 days, patient states she has backup pills and admits it has been more than a month since last fill.
omeprazole 40 mg Capsule,Delayed Release(Dr/Ec)
40 mg PO HS
albuterol sulfate 90 mcg/actuation Hfa Aerosol Inhaler
2 puff INHALATION R Q6HPRN PRN (Reason: sob)
atorvastatin 40 mg Tablet
40 mg PO HS
ibuprofen 800 mg Tablet
800 mg PO HSPRN PRN (Reason: mild pain)
Discontinued
insulin glargine [Lantus U-100 Insulin] 100 unit/mL Solution
25 unit SC HS
Discharge Orders:
Discharge Patient (As Directed); Ordered 08/14/24
Ordered By: Paulina Ramos
Discharge Date and Time
Discharge Date/Time: 08/14/24 15:08
Print Language: MICRONESIAN
== END 2024-08-14 15:08 | disposition home or self-care (01) ==
LOC: 4 WEST ACU 15:12
PROVIDERS: Nurse Practitioner Family; Student in an Organized Health Care Education/Training Program; ADMITTING PHYSICIAN Internal Medicine; ATTENDING PHYSICIAN Hospitalist; CONSULT PHYSICIAN Psychiatry & Neurology Neurology; EMERGENCY PHYSICIAN Emergency Medicine; FAMILY PHYSICIAN Physician Assistant Medical
DX: R20.0 Anesthesia of skin (principal); E11.65 Type 2 diabetes mellitus with hyperglycemia; R94.31 Abnormal electrocardiogram [ECG] [EKG]; E87.1 Hypo-osmolality and hyponatremia; D72.829 Elevated white blood cell count, unspecified; E11.40 Type 2 diabetes mellitus with diabetic neuropathy, unspecified; E78.5 Hyperlipidemia, unspecified; I10 Essential (primary) hypertension; J45.909 Unspecified asthma, uncomplicated; K21.9 Gastro-esophageal reflux disease without esophagitis; E66.01 Morbid (severe) obesity due to excess calories; Z68.39 Body mass index [BMI] 39.0-39.9, adult; Z79.02 Long term (current) use of antithrombotics/antiplatelets; Z85.42 Personal history of malignant neoplasm of other parts of uterus; Z79.51 Long term (current) use of inhaled steroids; Z79.4 Long term (current) use of insulin; Z87.891 Personal history of nicotine dependence; Z66 Do not resuscitate
CPT/HCPCS: 70496; 70498; 70551; 80053; 80061; 82607; 82728; 82746; 82962; 83036; 84443; 84484; 85025; 85027; 85610; 85652; 85730; 93005; 93306; 94640; 97116; 97161; 97165; 99285; G0378; Q9967

== ENCOUNTER → 2024-10-27 08:36 | Outpatient (REF) | payer BC, SELFPAY | LOC: HWWDC 08:36 | PROVIDERS: ATTENDING PHYSICIAN Physician Assistant Medical | DX: Z12.31 Encounter for screening mammogram for malignant neoplasm of breast (principal) | CPT/HCPCS: 77063; 77067 ==

== ENCOUNTER 2025-08-04 11:11 | Emergency (ER) | payer BC, SELFPAY ==
[2025-08-04 11:14] VITALS: BP 190/100
[2025-08-04 11:48] LABS: Hematocrit 40.1 % (37.0-47.0); Hemoglobin 13.4 g/dL (12.0-16.0); Mean Corp Hgb Conc. 33.4 g/dL (33.0-37.0); Mean Corpuscular Volume 83.9 fL (81.0-99.0); Nucleated Red Blood Cells % 0 %; Platelet Count 316 10^3/uL (130-400); Red Cell Dist. Width 12.6 % (11.5-14.5)
[2025-08-04 11:57] LABS: ALT (SGPT) 22 U/L (0-35); AST (SGOT) 18 U/L (14-36); Albumin 4.2 g/dl (3.5-5.0); Alkaline Phosphatase 115 U/L (38-126); Blood Urea Nitrogen 15 mg/dl (7-17); Calcium 9.2 mg/dl (8.4-10.2); Carbon Dioxide 28 mmol/L (22-30); Chloride 99 mmol/L (98-107); Glucose 326 mg/dl (70-99); Potassium 4.9 mmol/L (3.5-5.1); Sodium 133 mmol/L (135-145); Total Protein 6.9 g/dl (6.3-8.2); eGFR > 60.00
[2025-08-04 12:08] LABS: Troponin I < 0.012 ng/ml
[2025-08-04 13:06] VITALS: BP 159/91
--- NOTE | 2025-08-04 13:12 | ED.GENMED ---
History of Present Illness
General
Chief Complaint: Fainting Sensation
Time Seen by Provider: 08/04/25 13:12
History of Present Illness
History of Present Illness:
FOCUSED PAST MEDICAL HISTORY
- Uterine cancer, IDDM, diabetes
REVIEW OF OLD RECORDS
- The patient was admitted with questionable TIA in August 2024. At that time the patient had a CTA head and neck which showed some abnormality but was felt to be a normal variant at that time her A1c was 13.2.
Note:
CHIEF COMPLAINT(S)
Warm flushing sensation, numbness, neck and shoulder pain, numbness of the face, elevated blood sugar levels, and chest pain.
HISTORY OF PRESENT ILLNESS
The patient is a 50-year-old female with a history of diabetes who presents with the sensation of a warm flush spreading from head to toe, which occurred multiple times while she was seated at her computer. She describes this sensation as an
all-over body flush followed by feelings of numbness in her face. Additionally, she reports pain in the left side of her neck radiating into her shoulder.
She experienced elevated blood glucose levels that were identified when EMS measured them during acute care; they were reportedly very high, though no specific value was mentioned. The patient admits to not regularly checking her blood glucose
levels at home, noting consistent readings above 200 mg/dL. She takes glipizide daily for diabetes and denies current or past insulin use.
She has chronic neuropathy attributed to lumbar spine issues and reports numbness in the lower extremities, which she can alleviate by adjusting her posture. The patient expresses concerns about elevated blood pressure, with recent readings of
190/130 mmHg in the ambulance but denies any previous diagnosis of hypertension. She also reports ongoing chest pain for a couple of months, located beneath the left breast, which she initially attributed to gastrointestinal issues. Multiple
ultrasounds (one with contrast and one without) revealed no abnormalities of the esophagus or stomach.
PAST MEDICAL AND SURGICAL HISTORY
Significant for diabetes and chronic lumbar spine-related neuropathy.
CHRONIC MEDICAL CONDITIONS SIGNIFICANTLY AFFECTING CARE
Diabetes with suboptimal blood glucose control. Chronic neuropathy related to lumbar spinal issues.
MEDICATIONS
The patient takes Glyburide daily.
REVIEW OF SYSTEMS
- General: Sensation of warm flushing across the body.
- Skin: Numbness of facial areas.
- Musculoskeletal and Neurological: Neck and shoulder pain; chronic neuropathy with numbness in the lower extremities; absent sensation to pinprick in lower extremities.
- Cardiovascular: Intermittent chest pain beneath the left breast.
- Endocrine: Reports of blood glucose levels consistently above 200 mg/dL.
- Gastrointestinal: Previous gastrointestinal evaluations negative for abnormalities.
PHYSICAL EXAM
General: Alert, no acute distress. Elevated BMI.
Skin: Warm, dry.
Head: Normocephalic, atraumatic.
Neck: Supple, trachea midline.
Eye, Ears, Nose, Mouth, and Throat: Oral mucosa moist.
Cardiovascular: Normal peripheral perfusion, No edema.
Respiratory: Respirations are non-labored.
Gastrointestinal: Abdomen nondistended
Back: Normal range of motion, Normal alignment.
Musculoskeletal: Normal range of motion, normal strength.
Neurological: Alert and oriented to person, place, time, and situation, No focal neurological deficit observed however she does have absence of sensation to pinprick in both lower extremities.
Psychiatric: Cooperative, appropriate mood and affect.
PROBLEM LIST
Acute:
1. Warm flushing sensation
2. Facial numbness
3. Neck and shoulder pain
4. Chest pain
Chronic:
1. Diabetes with chronic hyperglycemia
2. Lumbar spine-related neuropathy
PLAN
1. Reach out to an photocopier technician to facilitate a referral and initiate appropriate diabetes management given the poorly controlled blood glucose levels.
2. Consider further evaluation of chronic neuropathy symptoms and their management.
3. Secondary management for blood pressure elevation and evaluation, considering the use of antihypertensive therapy.
4. Reassurance provided concerning chest pain, as tests have ruled out cardiac origin.
5. Patient advised on the importance of routine monitoring of blood glucose levels and regular follow-up with primary care.
DIFFERENTIAL DIAGNOSIS
The Differential Diagnosis includes, in no particular order and is not limited to:
1. Diabetic neuropathy
2. Diabetic ketoacidosis
3. New-onset hypertension
4. Cervical radiculopathy
5. Cardiac arrhythmia
6. TIA or Stroke
7. Spinal stenosis
8. Anxiety or panic attack
9. Gastroesophageal reflux disease (GERD)
10. Hyperthyroidism
EKG
- Sinus 77, normal axis, nonspecific ST abnormality, no significant change from 08/13/2024
LABS
- White count 10.9, hemoglobin normal, chemistries unremarkable however the glucose is 326, normal bicarb, troponin less than 0.012
UPDATE
- Discussed with Dr. Avelar: 'KRISTA MUNOZ, 50F, ROOM 21. She has h/o DM did not tolerate metformin and PMD placed on Glipizide 2M ago. Here w/ waves of flushing; chronically decreased sensation LEs. Gluc 326 and bicarb normal. Planning on d/c, but
she states her BS's are never below 200. She states she was never on insulin, but was on it a year ago when she was here. I am hoping she could follow up with you as outpatient.' -He will see patient as an outpatient
DIAGNOSIS
Paresthesias
Poorly controlled diabetes
Past History
Past History
ED Past Medical History: Asthma and Other (Diverticulitis)
ED Past Surgical History: Appendectomy
Social History
Tobacco: Former smoker (Former cigarette smoker, quit 20 years ago)
Alcohol: None
Drug: Former user (Previous marijuana use)
Phy Exam
Physical Exam
Physical Exam:
See HPI
Course
Orders/Labs/Results
Orders:
Orders
08/04/25 11:19
Electrocardiogram (*1) Urgent
Reason for Study: Other
Other Reason for Exam: flush feeling
08/04/25 11:20
EKG- Treatment ONCE
08/04/25 11:28
Complete Blood Count/With Diff Urgent
Comprehensive Metabolic Panel Urgent
Troponin I Urgent
Abnormal Lab Results
08/04/25
11:28
WBC 10.9 H 10^3/uL
(4.8-10.8)
MPV 10.7 H fL
(7.4-10.4)
Absolute Neuts (auto) 7.8 H 10^3/uL
(1.4-6.5)
Sodium 133 L mmol/L
(135-145)
Glucose 326 H mg/dl
(70-99)
08/04/25 11:28
08/04/25 11:28
Vital Signs
Blood pressure: 154/92
Initial and Last Documented VS:
Initial Vital Signs
Temp Pulse Resp BP Pulse Ox
36.7 C 91 16 190/100 98
08/04/25 11:14 08/04/25 11:14 08/04/25 11:14 08/04/25 11:14 08/04/25 11:14
Last Documented Vital Signs
Temp Pulse Resp BP Pulse Ox
36.7 C 79 24 154/92 95
08/04/25 11:14 08/04/25 13:45 08/04/25 13:45 08/04/25 13:30 08/04/25 13:45
*Pulse Oximetry
SaO2: 98
Oxygen Mode of Delivery: Room air
Patient hypoxic: no
*Critical Care Note
Total Time (30-74mins, 75-104mins- exclusive of procedures): Not Applicable
ED Attending Note
-
Portions of this chart may have been created with voice recognition software.� Occasional wrong word or��sound alike� substitutions may have occurred due to the inherent limitations of voice recognition software.
Discharge Plan
Departure
Prescriptions:
No Action
fluticasone propion-salmeterol [Advair Diskus] 250-50 mcg/dose Blister With Device
1 inh INHALATION R BID
amlodipine [Norvasc] 10 mg Tablet
10 mg PO HS
pregabalin [Lyrica] 100 mg Capsule
100 mg PO BID
Patient Comments:
08/13/24: last filled 05/27/24, 60 tabs for 30 days, patient states she has backup pills and admits it has been more than a month since last fill.
omeprazole 40 mg Capsule,Delayed Release(Dr/Ec)
40 mg PO HS
albuterol sulfate 90 mcg/actuation Hfa Aerosol Inhaler
2 puff INHALATION R Q6HPRN PRN (Reason: sob)
atorvastatin 40 mg Tablet
40 mg PO HS
ibuprofen 800 mg Tablet
800 mg PO HSPRN PRN (Reason: mild pain)
(DME) OneTouch Verio test strips Strip
Qty: 150 0RF
Rx Instructions:
Pt testing blood sugars 4 times a day
(DME) lancets [OneTouch Delica Plus Lancet] 30 gauge Misc
Qty: 150 0RF
Rx Instructions:
Pt testing blood sugars 4 times a day
insulin aspart U-100 [Novolog FlexPen U-100 Insulin] 100 unit/mL (3 mL) Insulin Pen
12 unit SC AC Qty: 5 0RF
insulin glargine [Basaglar KwikPen U-100 Insulin] 100 unit/mL (3 mL) Insulin Pen
30 unit SC DAILY Qty: 5 0RF
Rx Instructions:
TAKE 30 UNITS DAILY AT BEDTIME
(DME) pen needle, diabetic [BD Ultra-Fine Jessenia Pen Needle] 32 gauge x ' Needle
Qty: 200 0RF
Rx Instructions:
PATIENT TAKING INSULIN 4 TIMES A DAY
aspirin 81 mg Tablet,Delayed Release (Dr/Ec)
81 mg PO DAILY 30 Days Qty: 30 0RF
clopidogrel 75 mg Tablet
75 mg PO DAILY 21 Days Qty: 21 0RF
rizatriptan 10 mg tablet
10 mg PO ONCE 30 Days Qty: 30 0RF
Referrals:
UNKNOWN - PT NOT,INTERVIEWE [Family Provider]
Interventions
Interventions:
*Risk Screen - Suicide Last Done: 08/04/25 11:14
*General Assessment Last Done: 08/04/25 11:14
*Neglect/Abuse Screening Last Done: 08/04/25 11:14
ED- Cardiac Assessment Last Done: 08/04/25 12:15
ED- Neurological Assessment Last Done: 08/04/25 12:15
Discharge Date and Time
Print Language: ALGERIAN
== END 2025-08-04 14:13 | disposition home or self-care (01) ==
LOC: EMR 11:11
PROVIDERS: Emergency Medicine; EMERGENCY PHYSICIAN Emergency Medicine
DX: R20.2 Paresthesia of skin (principal); E11.65 Type 2 diabetes mellitus with hyperglycemia; M54.2 Cervicalgia; M25.512 Pain in left shoulder; G62.9 Polyneuropathy, unspecified; J45.909 Unspecified asthma, uncomplicated; Z87.891 Personal history of nicotine dependence; Z90.49 Acquired absence of other specified parts of digestive tract; Z85.42 Personal history of malignant neoplasm of other parts of uterus
CPT/HCPCS: 99284; 80053; 84484; 85025; 93005